=== PATIENT | male | born 1975 | race Native Hawaiian/Other Pacific Islander ===

== ENCOUNTER 2017-03-29 16:45 | Emergency (ER) | payer OTHER ==
[~2017-03-29] VITALS: Ht 185.4 cm; Wt 204.1 kg
[2017-03-29 20:25] VITALS: BP 142/83; TEMP 98
== END 2017-03-29 20:25 | disposition left against medical advice (07) ==
LOC: ED 16:45
DX: S62.647B Nondisplaced fracture of proximal phalanx of left little finger, initial encounter for open fracture (principal); W32.0XXA Accidental handgun discharge, initial encounter; Y93.89 Activity, other specified; Y92.89 Other specified places as the place of occurrence of the external cause
CPT/HCPCS: 36415; 90471; 90715; 96365; 99284; J0690